=== PATIENT | female | born 1990 | race African-American/Black ===

== ENCOUNTER 2020-04-27 12:54 | Emergency (ER) | payer OTHER, SELFPAY ==
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
--- NOTE | ~2020-04-27 | XR_ITS ---
XR thoracic spine 3V DATE: 04/27/2020 14:37 INDICATION: Generalized mid back pain TECHNIQUE: AP, lateral, swimmer views COMPARISON: None FINDINGS: There is minimal levoscoliosis of the thoracic spine. No fracture or dislocation or bone de struction. The thoracic pedicles are intact. No paraspinal soft tissue thickening. IMPRESSION: Minimal levoscoliosis Reviewed, dictated and finalized at [facility]. ATIENT PHLEBOTOMIST IMPRESSION: Minimal levoscoliosis
[2020-04-27 13:01] VITALS: BP 136/85; PULSE 93; RESP 18; TEMP 36.8; O2SAT 100
--- NOTE | 2020-04-27 14:20 | PC.NURSE ---
Pt taken to Xray with no C Collar on her. Time this RN went room to place Ccollar on pt she was not in there ,
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
== END 2020-04-27 15:45 | disposition home or self-care (01) ==
PROVIDERS: Emergency Provider Emergency Medicine
DX: S09.90XA Unspecified injury of head, initial encounter (principal); S29.012A Strain of muscle and tendon of back wall of thorax, initial encounter; V43.52XA Car driver injured in collision with other type car in traffic accident, initial encounter
CPT/HCPCS: 70450; 72072; 72125; 99284; L0140